=== PATIENT | male | born 2005 | race Caucasian/White ===

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

== ENCOUNTER 2025-02-07 17:23 | Emergency (ER) | payer MEDICAID, SELFPAY ==
[2025-02-07 17:38] VITALS: BP 112/71; PULSE 76; RESP 18; TEMP 36.8; O2SAT 98; BMI 19.8
--- NOTE | 2025-02-07 17:50 | ED_ITS ---
HPI - Headache General Chief Complaint: Headache Stated Complaint: nausea headache Time Seen by Provider: 02/07/25 18:31 History of Present Illness ED Provider: Maritza ROUSE Narrative: The patient is a 19-year-old male who is generally in good health. He says that over the last week he has been having headaches primarily in the right side of his head right eye and sometimes radiating around the right side of his head to the base of the skull on the right side. He has had intermittent nausea. The headaches started gradually. The headache has been waxing and waning. His headaches were somewhat worse today when he decided to come to the emergency room but while waiting to be seen his headache has improved. No definite photophobia or phonophobia. No fever, sweats, chills. No sore throat. No neck stiffness. No visual symptoms. Related Data Previous Rx's ?Medication ?Instructions ?Recorded amoxicillin 500 mg-potassium 1 tab PO BID #13 tabs 01/30/21 clavulanate 125 mg tablet (Augmentin) acetaminophen 500 mg capsule 1,000 mg (2 x 500 mg) PO Q8H PRN 02/07/25 fever or pain #14 caps ibuprofen 400 mg tablet 400 mg PO Q6H PRN pain #14 tabs 02/07/25 ondansetron 4 mg disintegrating 4 mg PO Q6H PRN nausea and 02/07/25 tablet vomiting #10 tabs Allergies Allergy/AdvReac Type Severity Reaction Status Date / Time No Known Allergies Allergy Verified 02/07/25 17:42 Review of Systems 2 Review of Systems: Yes all other systems are reviewed and are negative PMFSH Past Medical History Medical History Asthma Pre-diabetes Social History Social History (System 03/26/24 @ 10:59 by Zenia Tapia) Advance Directives: No Advance Directives Information Provided: No Physical Exam 2 Vital Signs: Vital Signs: Last Vital Signs Temp 98.2 F 02/07/25 17:38 Pulse 76 02/07/25 17:38 Resp 18 02/07/25 17:38 BP 112/71 02/07/25 17:38 Pulse Ox 98 02/07/25 17:38 O2 Del Method Room Air 02/07/25 17:38 BMI result Body Mass Index 19.8 Const: Other: The patient is a slim 19-year-old male who looks well. He does not appear ill or in distress in any way. He looks as if he is ordinarily healthy. HEENT: Other: Face is symmetrical. Mucous membranes moist. The posterior pharynx is normal. Eyes: Other: Pupils are round, equal, and reactive to light, extraocular movements are intact, accommodation is normal, retinal exam is unremarkable Neck: Other: No cervical adenopathy, the neck is entirely supple. Resp: Effort & Inspection: normal respiratory effort Auscultation: clear to auscultation bilaterally Cardio: Rate: regular rate Rhythm: regular rhythm Heart sounds: S1 normal heart sound present and S2 normal heart sound present Skin: Other: Skin is dry and unremarkable Neuro: Other: The patient is awake, alert, pleasant, cooperative. Mental status is normal. Pupillary exam is normal. Funduscopic exam seems normal. Extraocular movements are intact. Face is symmetrical. Speech is clear. He moves his extremities normally and normal coordination. Normal gait. He seems entirely neurologically intact and nontoxic. Extrem: Other: No peripheral edema Course Course Course Narrative: This is a Rapid Medical Examination (RME) performed by Sierra Lizama PA-C in triage. Full HPI, ROS, assessment and treatment plan per primary provider in the Main ED. 02/07/25 1750 LETHA Rehman Hx: 19 yo male here for eval of right sided migraine x5 days. no hx of migraines. assoc nausea and photophobia. no vomiting. No vision changes, numbness/tingling. No sick contacts. PE/vitals: Well-appearing Plan: labs, viral swabs > will defer imaging to primary provider Medical Decision Making Medical Decision Making MDM Narrative: The patient is a 19-year-old male who presents for evaluation of a right-sided headache that has been bothering him for several days. The patient describes the headache as a migraine but he does not really have a history of migraines and I do not really feel his description of his headache today is obviously a migraine headache although the unilateral nature of the headache would be consistent with migraines. His headache is not severe. He has been using ibuprofen and acetaminophen with some relief. He has run out of ibuprofen. Labs has been ordered at triage which are unremarkable. The patient was offered IV therapy but would prefer to have oral therapy. He will be given ibuprofen and acetaminophen orally. He has no nausea currently. He will be discharged with prescriptions for ibuprofen and acetaminophen and ondansetron. He should follow up with his PCP at the [facility] to discuss this headache further. Return if worse. Lab Data 02/07/25 17:57 02/07/25 17:56 Labs: Lab Results 02/07/25 02/07/25 Range/Units 17:56 17:57 WBC 9.6 (4.8-10.8) X10*3/uL RBC 4.64 (4.60-5.80) X10*6/uL Hgb 14.6 (14.0-18.0) g/dl Hct 41.7 L (42.0-52.0) % MCV 89.9 (80.0-98.0) fL MCH 31.5 (27.0-33.0) pg MCHC 35.0 (31.0-36.0) g/dl RDW 13.3 (11.0-16.0) % Plt Count 300 D (160-400) X10*3/uL MPV 8.4 L (9.4-12.4) fL Immature Gran % (Auto) 0.4 (0.0-0.4) % Neut % (Auto) 63.3 (45-73) % Lymph % (Auto) 28.0 (20-40) % Hubbard % (Auto) 6.3 (2-11) % Eos % (Auto) 1.7 (0-4) % Baso % (Auto) 0.3 (0-2) % Lymph # (Auto) 2.7 (1.2-4.9) X10*3/uL Hubbard # (Auto) 0.6 (0.1-1.2) X10*3/uL Eos # (Auto) 0.2 (0.0-0.4) X10*3/uL Baso # (Auto) 0.0 (0.0-0.2) X10*3/uL Abs Immat Gran (auto) 0.04 H (0.00-0.03) X10*3/uL Absolute Neuts (auto) 6.1 (2.0-8.3) x10*3/uL Absolute Nucleated RBC 0.000 (0.0-0.012) X10*3/uL Nucleated RBC % (auto) 0.0 (0.0-0.2) /100WBC Sodium 140 (135-145) mmol/L Potassium 3.5 (3.3-5.1) mmol/L Chloride 107 (96-108) mmol/L Carbon Dioxide 26 (22-29) mmol/L Anion Gap 11 L (12-20) BUN 11 (9-16) mg/dL Creatinine 0.78 (0.5-1.4) mg/dL Estim Creat Clear Calc 116.5 Estimated GFR > 60 Random Glucose 128 H (60-115) mg/dL Calcium 9.3 D (8.4-10.2) mg/dL Magnesium 1.9 (1.6-2.6) mg/dL Total Bilirubin 0.4 (0.0-1.0) mg/dL AST 26 (5-37) U/L ALT 15 (0-40) U/L Alkaline Phosphatase 81 (39-117) U/L Total Protein 7.5 (6.5-8.0) g/dL Albumin 4.4 (3.5-5.0) g/dL Lipase 11 (8-78) U/L Influenza Type A (PCR) NEGATIVE (Negative) Influenza Type B (PCR) NEGATIVE (Negative) RSV RNA Qual (PCR) NEGATIVE (Negative) SARS-CoV-2 RNA (RT-PCR) NEGATIVE (Negative) Discharge Plan Discharge Clinical Impression: Headache Patient Disposition: Home, Self-Care Instructions: Acute Headache (ED) Additional Instructions: At the moment your physical exam seems very reassuring and your blood testing is unremarkable. I have sent prescriptions for ibuprofen and acetaminophen which you may use on an as-needed basis headache pain. I have also sent a prescription for a medication called ondansetron (also called Zofran) which you may use as needed for nausea. Please make a follow up appointment at the [facility] to discuss these headaches further. For any point you feel significantly worse or have any other concerning symptoms please return to the emergency room. Prescriptions: New ibuprofen 400 mg tablet 400 mg PO Q6H PRN (Reason: pain) Qty: 14 0RF ondansetron 4 mg tablet,disintegrating 4 mg PO Q6H PRN (Reason: nausea and vomiting) Qty: 10 0RF acetaminophen 500 mg capsule 1,000 mg PO Q8H PRN (Reason: fever or pain) Qty: 14 0RF No Action amoxicillin-pot clavulanate [Augmentin] 500-125 mg tablet 1 tab PO BID Qty: 13 0RF Referrals: [facility] [Provider Group] (Headaches) Print Language: Polish
[2025-02-07 18:02] LABS: MANUAL DIFF FLAG NO
[2025-02-07 18:06] LABS: Basophils Percent Auto 0.3 % (0-2); Eosinophils Absolute Auto 0.2 X10*3/uL (0.0-0.4); Eosinophils Percent Auto 1.7 % (0-4); Hematocrit 41.7 % (42.0-52.0); Hemoglobin 14.6 g/dl (14.0-18.0); Imm Gran Abs Auto 0.04 X10*3/uL (0.00-0.03); Imm Gran Pct Auto 0.4 % (0.0-0.4); Lymphocytes Absolute Auto 2.7 X10*3/uL (1.2-4.9); Mean Corpuscular Hemoglobin 31.5 pg (27.0-33.0); Mean Corpuscular Volume 89.9 fL (80.0-98.0); Mean Platelet Volume 8.4 fL (9.4-12.4); Monocytes Absolute Auto 0.6 X10*3/uL (0.1-1.2); Monocytes Percent Auto 6.3 % (2-11); Neutrophils Absolute Auto 6.1 x10*3/uL (2.0-8.3); Neutrophils Percent Auto 63.3 % (45-73); Platelet Count 300 X10*3/uL (160-400); Red Blood Count 4.64 X10*6/uL (4.60-5.80); Red Cell Distribution Width 13.3 % (11.0-16.0); White Blood Count 9.6 X10*3/uL (4.8-10.8)
[2025-02-07 18:17] LABS: Alanine Aminotransferase 15 U/L (0-40); Albumin Level 4.4 g/dL (3.5-5.0); Alkaline Phosphatase 81 U/L (39-117); Anion Gap 11 (12-20); Aspartate Amino Transferase 26 U/L (5-37); Bilirubin Total 0.4 mg/dL (0.0-1.0); Blood Urea Nitrogen 11 mg/dL (9-16); Calcium 9.3 mg/dL (8.4-10.2); Carbon Dioxide 26 mmol/L (22-29); Chloride 107 mmol/L (96-108); Creatinine Clr Calc Pharmacy 116.5; Estimated Glomerular Filt Rate > 60; Glucose Random 128 mg/dL (60-115); Lipase 11 U/L (8-78); Magnesium 1.9 mg/dL (1.6-2.6); Potassium 3.5 mmol/L (3.3-5.1); Sodium 140 mmol/L (135-145); Total Protein 7.5 g/dL (6.5-8.0)
[2025-02-07 18:40] LABS: Influenza A PCR NEGATIVE (Negative); Influenza B PCR NEGATIVE (Negative); Resp Syncy Virus RNA Qual PCR NEGATIVE (Negative); SARS COV2 PCR INHOUSE NEGATIVE (Negative)
--- NOTE | 2025-02-07 18:52 | PC.NURSE ---
Patient presents with c/o right sided frontal EDWARDS radiating to occiput with assoc nausea. Alert and oriented. No neuro deficits noted. Respirations even and non-labored. Abdomen soft, flat non-tender with positive bowel sounds. Denies any nausea at this time.
[2025-02-07] MEDS: Ibuprofen 400 MG TABLET PO (19:04)
[2025-02-07] MEDS: Acetaminophen 325 MG TABLET 975 MG PO (19:04)
[2025-02-07 19:08] VITALS: BP 112/71; PULSE 76; RESP 18; TEMP 36.8; O2SAT 98
== END 2025-02-07 19:09 | disposition home or self-care (01) ==
PROVIDERS: Physician Assistant Medical; Emergency Provider Emergency Medicine
DX: R51.9 Headache, unspecified (principal); Z03.818 Encounter for observation for suspected exposure to other biological agents ruled out; J45.909 Unspecified asthma, uncomplicated
CPT/HCPCS: 0241U; 80053; 83690; 83735; 85025; 99283; 99284

== ENCOUNTER 2025-05-03 05:49 | Emergency (ER) | payer OTHER, SELFPAY ==
--- NOTE | ~2025-05-03 | XR_ITS ---
CLINICAL HISTORY: pain 4 view left knee Comparison: None provided Findings: Bones intact. No dislocations. No joint effusion. No radiopaque foreign body. IMPRESSION: 1. No acute findings. This document has been electronically signed by: Romel Lucas MD on 05/03/2025 06:58:18
[2025-05-03 05:57] VITALS: BP 135/81; PULSE 67; RESP 16; TEMP 36.4; O2SAT 100; BMI 22.3
--- NOTE | 2025-05-03 07:24 | ED_ITS ---
HPI - Extremity Injury (Lower) General Chief Complaint: Extremity Injury, Lower Stated Complaint: Left knee pain Time Seen by Provider: 05/03/25 07:20 Source: patient Mode of arrival: ambulatory Limitations: no limitations History of Present Illness ED Provider: DR. Arellano HPI Narrative: 20-year-old male otherwise healthy came in for evaluation of left knee pain started since this morning, patient declines any trauma or injury to the left knee, no fall, no strenuous exercise. Patient take Advil, by the time of the exam patient is ambulating unsteady gait, pain subsided to 10/25. No recent travel, no lower extremity swelling or tenderness. Related Data Previous Rx's ?Medication ?Instructions ?Recorded amoxicillin 500 mg-potassium 1 tab PO BID #13 tabs clavulanate 125 mg tablet (Augmentin) acetaminophen 500 mg capsule 1,000 mg (2 x 500 mg) PO Q8H PRN 02/07/25 fever or pain #14 caps ibuprofen 400 mg tablet 400 mg PO Q6H PRN pain #14 t abs 02/07/25 ondansetron 4 mg disintegrating 4 mg PO Q6H PRN nausea and 02/07/25 tablet vomiting #10 tabs Allergies Allergy/AdvReac Type Severity Reaction Status Date / Time No Known Allergies Allergy Verified 05/03/25 05:58 Review of Systems Review of Systems: All other systems are reviewed and are negative Constitutional: Reports as per HPI and Reports no additional constitutional complaints Eyes: Reports as per HPI and Reports no additional eye complaints Reports system reviewed and no additional complaints, except as documented Cardiovascular: Reports as per HPI and Reports no additional cardiovascular comp laints Respiratory: Reports as per HPI and Reports no additional respiratory complaints Gastrointestinal: Reports as per HPI and Reports no additional gastrointestinal complaints Genitourinary: Reports no additional female genitourinary complaints Musculoskeletal: Reports no additional musculoskeletal complaints Skin/Breast: Reports system reviewed and no additional complaints, except as docu Psychiatric: Reports no additional psychiatric complaints Endocrine: Reports no additional endocrine complaints Hematologic/Lymphatic: Reports no additional hematologic/lymphatic complaints Allergic/Immunologic: Reports no additional allergic/immunologic complaints Reports system reviewed and no additional complaints, except as documented and Reports Abnormal speech present [facility] Past Medical History Medical History Pre-diabetes Asthma Social History Social History Smoked in Last 30 Days: Yes Use of substances other than those prescribed or required for medical reasons: No Advance Directives: No Advance Directives Information Provided: No Do you have a plan to hurt others: No Plan Physical Exam Vital Signs: Vital Signs: Last Vital Signs Temp 97.6 F 05/03/25 05:57 Pulse 67 05/03/25 05:57 Resp 16 05/03/25 05:57 BP 135/81 05/03/25 05:57 Pulse Ox 100 05/03/25 05:57 O2 Del Method Room Air 05/03/25 05:57 BMI result Body Mass Index 22.3 Vital signs have been reviewed and appear to be correct. Blood pressure elevated. Heart rate normal. Respiratory rate normal. Temperature normal. Oxygen saturation normal. Appearance: Alert. Oriented X3. No acute distress. Head: Normal external exam. Normocephalic. Atraumatic. No Santiago signs noted. No raccoon eyes noted Eyes: PERRLA. EOMI. Conjunctiva and sclera normal. Eyelids normal. ENT: TM's Normal. Pharynx normal. Uvula midline. Moist mucous membranes. No trismus noted. No drooling noted. No muffled voice noted. Neck: Normal inspection. Neck supple. FROM. No adenopathy. Thyroid Normal. No meningeal signs. No neck mass noted. CVS: Normal heart rate and rhythm. Heart sound normal. No murmurs noted. Pulses normal throughout. Respiratory: No respiratory distress. Painless inspiration. Breath sounds normal. No wheezes/rales/rhonchi noted. Chest nontender. No accessory muscle usage noted or decreased air movement noted. Abdomen: Soft and nontender. Bowel sounds normal in all 4 quadrants. No distention noted. No organomegaly noted. No visible injury noted. Back: No CVA tenderness. Full range of motion noted. Skin: Skin warm and dry. Normal skin color. Normal skin turgor. No rashes/lesions/lacerations noted. Extremities: Left knee: No erythema, no swelling, full range of motion, able to ambulate unsteady gait, no calf swelling or tenderness. Neuro: Oriented X 3. Cranial nerve exam: II-XII are grossly intact No motor deficit. No sensory deficit. Reflexes normal. Course Reevaluation(s) Reevaluation #1: Left knee pain, resolved now patient has a normal knee exam, normal x-ray. Will reassure Time: 07:26 Medical Decision Making Differential Diagnosis Differential Diagnoses: The differential diagnosis associated with the presentation includes (Left knee fracture, left knee dislocation, ligaments injury, DVT.) Admission/Observation Consideration of admission/observation: Escalation of care including admission/observation considered Independent Interpretation I performed an independent interpretation of an: Plain X-Ray (Left knee x- ray:Bones intact. No dislocations. No joint effusion. No radiopaque foreign body.) Radiology Impression Discussion of test interpretation with radiology: I have reviewed the radiologist's reading. Discharge Plan Discharge Clinical Impression: Arthralgia of knee, left Patient Disposition: Home, Self-Care Instructions: Arthralgia (ED) Prescriptions: No Action amoxicillin-pot clavulanate [Augmentin] 500-125 mg tablet 1 tab PO BID Qty: 13 0RF ibuprofen 400 mg tablet 400 mg PO Q6H PRN (Reason: pain) Qty: 14 0RF ondansetron 4 mg tablet,disintegrating 4 mg PO Q6H PRN (Reason: nausea and vomiting) Qty: 10 0RF acetaminophen 500 mg capsule 1,000 mg PO Q8H PRN (Reason: fever or pain) Qty: 14 0RF Referrals: [facility] [Primary Care Provider, Medical] Print Language: Finnish
[2025-05-03 07:34] VITALS: BP 135/81; PULSE 67; RESP 16; TEMP 36.4; O2SAT 100
== END 2025-05-03 07:34 | disposition home or self-care (01) ==
PROVIDERS: Emergency Provider Emergency Medicine
DX: M25.562 Pain in left knee (principal)
CPT/HCPCS: 73564; 99283; 99284

== ENCOUNTER → 2025-05-03 06:25 | Outpatient (BNV) | payer SELFPAY | PROVIDERS: Visit Provider Radiology Vascular & Interventional Radiology | DX: M25.562 Pain in left knee (principal) | CPT/HCPCS: 73564 ==